=== PATIENT | female | born 1985 | race African-American/Black ===

== ENCOUNTER 2025-01-15 10:04 | Outpatient (AMB) | payer OTHER, SELFPAY ==
--- NOTE | 2025-01-15 10:06 | A.OFFPC_ITS ---
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 Vulvar pruritus: - Persistent vulvar itching for several months, exacerbated by heat, unresponsive to clotrimazole and Augmentin. - No discharge or odor noted, with a his tory of multiple consultations in [facility] and the [place] Increased urinary frequency: - Reports frequent urination without jing n or discharge, with no recent [place] gynecological evaluations. Gastrointestinal discomfort: - Experiences gas, stomach noises, nause a, loss of appetite, and stomach heaviness. Review of Systems - Genitourinary: Reports vulvar itching, increased urinary frequency. Denies discharge or foul odor. - Gastrointestinal: Reports frequent gas , stomach noises, occasional nausea, loss of appetite, and stomach heaviness. 10-point ROS reviewed and negative excep t as noted in HPI Past Medical History - History of vulvar pruritus treated wit h clotrimazole and Augmentin without relief. Health Maintenance Physical Exam General: Well-appearing, in no acute distress. Vital signs: Within normal limits. HEENT: Normocephalic, atraumatic. PERRLA, EOMI. Conjunctiva clear, sclera anicteric. Oropharynx clear, mucous membranes moist. TMs intact bilaterally. Neck: Supple, no lymphadenopathy, no thyromegaly, no JVD or carotid bruits. Cardiovascular: RRR, normal S1/S2, no murmurs, rubs, or gallops. Peripheral pulses 2+ and symmetric. No edema. Respiratory: Lungs clear to auscultation bilaterally, no wheezes, rales, or rhonchi. Normal effort. Abdomen: Soft, non-tender, non-distended. Normoactive bowel sounds. No hepatosplenomegaly, no masses. MSK: Full range of motion, no joint swelling or deformity. Normal gait. Skin: Warm, dry, intact. No rashes, lesions, or pallor. Neuro: Alert and oriented x3. Cranial nerves II-XII intact. Strength 5/5 throughout. Sensation intact. Reflexes 2+ symmetric. Normal coordination and gait. Psych: Appropriate mood and affect. Normal judgment and insight. 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 Vulvar Pruritus - Conduct comprehensive lab tests includ ing metabolic panel and CBC. Treat with nitrofurantoin for dermatitis and UTI. 2. Increased Urinary Frequency - Perform urinalysis and urine culture t o assess urinary symptoms. 3. Gastrointestinal Discomfort - Monitor symptoms and consider further evaluation if they persist. Discussion Notes I discussed with the patient the plan to conduct a series of tests including a complete metabolic panel, CBC, and a vaginal infection panel to better understand her symptoms. We also talked about starting treatment with nitrofurantoin for her urinary tract infection and triamcinolone for herdermatitis. I explained the importance of follow-up in one week to assess her response to treatment and adjust if necessary. Patient was informed and verbally consented to the use of an ambient scribe for clinic note documentation during this visit. Patient Instructions - Take nitrofurantoin as prescribed for urinary tract infection and triamcinolone for her dermatitis. - Return for follow-up in one week to ev aluate treatment response. - Monitor symptoms and report any worsen ing or new symptoms immediately. Total time spent caring for the patient today was 30 minutes. This includes time spent before the visit reviewing the chart, time spent documenting, and time spent reviewing laboratory results, diagnostic imaging, medications, performing a medically necessary evaluation, counseling on diagnoses, care coordination, ordering appropriate tests, ordering appropriate medications, review of tests performed by other providers, reporting test results with the patient, communication with other healthcare providers. [facility] Family History (Updated 01/15/25 @ 10:07 by Luzma Tom [facility]) Mother No problems noted. Father No problems noted. Social History Housing: House Patient Tobacco Use Status: Never used Tobacco service: No Current occupational status: unemployed Cognitive needs: No Hearing needs: No Vision needs: No Questionnaire PHQ-9 Over the last 2 weeks, how often have you been bothered by any of the following problems? 1. Little interest or pleasure in doing things: not at all 2. Feeling down, depressed, or hopeless: not at all 3. Trouble falling or staying asleep, or sleeping too much: more than half the days 4. Feeling tired or having little energy: not at all 5. Poor appetite or overeating: not at all 6. Feeling bad about yourself - or that you are a failure or have let yourself or your family down: not at all 7. Trouble concentrating on things, such as reading the newspaper or watching television: not at all 8. Moving or speaking so slowly that other people could have noticed. Or the opposite - being so fidgety or restless that you have been moving around a lot more than usual: not at all 9. Thoughts that you would be better off or of hurting yourself in some way: not at all Total score: 2 Source: Developed by Drs. Dennis Purcell, Iqra Mathews, Jossue Rao and colleagues, with an educational laith from [employer]. Thrive Questionnaire Date Thrive assessed: 01/12/25 I am a: Patient What is your living situation today?: I have a steady place to live Within the past 12 months, did the food you bought not last and you didn't have the money to get more?: Never true Within the past 12 months, did you worry whether your food would run out before you got money to buy more?: Never true Do you have trouble paying for medicines?: No Do you have trouble getting transportation to medical appointments?: No Do you have trouble paying your heating and electricity bill?: No Do you have trouble taking care of your child, family member or friend?: No Do you have trouble with day-to-day activities such as bathing, preparing meals, shopping, managing finances, etc.?: No Are you currently unemployed and looking for a job?: Yes Are you interested in more education?: Yes Please select the resources that you would like help with: Education Currently or been in a relationship where the following occur: No concerns reported THRIVE Score: 0 AUDIT C Alcohol Use Questionnaire (AUDIT-C) 1. How often do you have a drink containing alcohol?: Never Total Score: 0 CAYETANO-7 AMB Questionnaire CAYETANO-7 Date CAYETANO - 7 assessed: 01/15/25 Feeling nervous, anxious, or on edge: 0 = Not at all Not being able to stop or control worryin = Not at all Worrying too much about different things: 0 = Not at all Trouble relaxin = Not at all Being so restless that it is hard to sit still: 0 = Not at all Becoming easily annoyed or irritable: 0 = Not at all Feeling afraid as if something awful might happen: 0 = Not at all Total CAYETANO-7 score (0-4 normal; 5-9 mild; 10-14 moderate; 15-21 severe): 0 Source: Developed by Drs. Dennis Purcell, Iqra Mathews, Jossue Rao and colleagues, with an educational laith from [employer]. Physical exam (Primary Care) Vital Signs: Last Vital Signs Temp 98.5 F 01/15/25 10:12 Pulse 95 01/15/25 10:12 BP 108/67 01/15/25 10:12 Pulse Ox 99 01/15/25 10:12 Oxygen Delivery Method Room Air 01/15/25 10:12 BMI result Body Mass Index 23.6 Tobacco/Smoking Status: Tobacco use Status Tobacco use date assessed 01/15/25 01/15/25 10:08 Patient Tobacco Use Status Never used Tobacco 01/15/25 10:08 PHQ-9: PHQ-9 Score PHQ-9: Total score 2 01/15/25 10:15 Thrive Assessment: Date of Thrive Assessment Date Thrive assessed 01/12/25 01/15/25 10:08 Currently or been in a relationship where the following occur: No concerns reported Coding Level of Care Code New Pt Level 4 (48291) Diagnoses Vulvar pruritus L29.2 Urinary frequency R35.0 Gastrointestinal discomfort K30 Assessment & Plan Assessment & Plan (1) Vulvar pruritus: Code(s): L29.2 - Pruritus vulvae (2) Urinary frequency: Code(s): R35.0 - Frequency of micturition (3) Gastrointestinal discomfort: Code(s): K30 - Functional dyspepsia Plan Orders: Orders Chlamydia Species Ab Panel Today Z13.9 - Encounter for screening, unspecified Complete Blood Count Auto Diff Today Z13.9 - Encounter for screening, unspecified Comprehensive Met. Panel Today Z13.9 - Encounter for screening, unspecified Hepatitis B Surface Antigen Today Z13.9 - Encounter for screening, unspecified Lipid Panel Today Z13.9 - Encounter for screening, unspecified Syphilis Screen Today Z13.9 - Encounter for screening, unspecified UA CC w/rflx Micro + Cult Today Z13.9 - Encounter for screening, unspecified Vitamin B12 and Folate Today Z13.9 - Encounter for screening, unspecified Vitamin D 1,25 dihydroxy Today Z13.9 - Encounter for screening, unspecified Hemoglobin A1c Today Z13.9 - Encounter for screening, unspecified Hepatitis B Surface Antibody Today Z13.9 - Encounter for screening, unspecified Hepatitis C Antibody Today Z13.9 - Encounter for screening, unspecified TSH reflex Free T4 Today Z13.9 - Encounter for screening, unspecified CT NG by PCR Urine Today Z13.9 - Encounter for screening, unspecified Medications: New 2 nitrofurantoin macrocrystal must administer with a meal/food 100 mg PO Q12H 14 caps 0RF triamcinolone acetonide 0.1% 1 appl topical DAILY 80 grams 0RF
[2025-01-15 10:12] VITALS: BP 108/67; PULSE 95; TEMP 36.9; O2SAT 99; BMI 23.6
== END 2025-01-15 11:18 | disposition home or self-care (01) ==
LOC: HO.HMCFMS 10:04
PROVIDERS: Visit Provider Student in an Organized Health Care Education/Training Program
DX: L29.2 Pruritus vulvae (principal); R35.0 Frequency of micturition; K30 Functional dyspepsia

== ENCOUNTER 2025-01-15 10:04 | Outpatient (REF) | payer OTHER, SELFPAY ==
[2025-01-15 17:29] LABS: MANUAL DIFF FLAG NO
[2025-01-15 17:35] LABS: Hematocrit 42.3 % (37.0-47.0); Hemoglobin 13.3 g/dl (12.0-16.0); Imm Gran Abs Auto 0.01 X10*3/uL (0.00-0.03); Imm Gran Pct Auto 0.2 % (0.0-0.4); Lymphocytes Absolute Auto 2.0 X10*3/uL (1.2-4.9); Mean Corpuscular HGB Conc 31.4 g/dl (31.0-35.0); Mean Corpuscular Hemoglobin 28.5 pg (27.0-33.0); Mean Corpuscular Volume 90.8 fL (80.0-98.0); NRBC Abs Auto 0.000 X10*3/uL (0.0-0.012); NRBC Pct Auto 0.0 /100WBC (0.0-0.2); Platelet Count 296 X10*3/uL (160-400); Red Blood Count 4.66 X10*6/uL (4.20-5.50); White Blood Count 6.2 X10*3/uL (4.8-10.8)
[2025-01-15 17:48] LABS: Appearance Urine Clear; Glucose Urine UA Negative (Negative); PH 8.5 (5.0-9.0); Specific Gravity - Urine 1.010 (1.005-1.025)
[2025-01-15 18:00] LABS: Alanine Aminotransferase 15 U/L (0-31); Albumin Level 5.1 g/dL (3.5-5.0); Alkaline Phosphatase 74 U/L (39-117); Anion Gap 14 (12-20); Aspartate Amino Transferase 29 U/L (5-31); Blood Urea Nitrogen 7 mg/dL (9-16); Calcium 9.5 mg/dL (8.4-10.2); Carbon Dioxide 24 mmol/L (22-29); Chloride 105 mmol/L (96-108); Cholesterol 181 mg/dL (<200); Estimated Glomerular Filt Rate > 60; HDL Cholesterol 58 mg/dL (>40); Potassium 3.8 mmol/L (3.3-5.1); Sodium 139 mmol/L (135-145); Total Protein 8.5 g/dL (6.5-8.0); Triglycerides 59 mg/dL (<150)
[2025-01-15 18:21] LABS: Folate 12.9 ng/mL (> or = 4.0); Vitamin B12 642 pg/mL (200-900)
[2025-01-16 04:19] LABS: Syphilis Screen Nonreactive (Nonreactive)
[2025-01-16 04:43] LABS: HBS Num1 104.60 mIU/mL (0-7.99); HBsAGNum1 0.57 S/CO (0.00-0.99); Hepatitis B Surface Antigen Negative (Negative); ~HepC Num1 0.10 S/CO (0.00-0.79); ~Hepatitis B Surface Antibody REACTIVE (Nonreactive); ~Hepatitis C Antibody Nonreactive (Nonreactive)
[2025-01-16 06:06] LABS: CT PCR Urine NOT DETECTED (Not Detect.); NG PCR Urine NOT DETECTED (Not Detect.)
[2025-01-19 16:23] LABS: VITAMIN D (1,25 OH) D3 80 pg/mL; Vit D (1,25-Dihydroxy) Total 80 pg/mL (18-72); Vitamin D (1,25 OH) D2 <8 pg/mL
[2025-01-20 23:13] LABS: Chlamydia Trachomatis IgA <1:16 titer (<1:16)
== END 2025-01-15 10:05 | disposition home or self-care (01) ==
LOC: HO.HKASLDS 10:04
PROVIDERS: PCP Student in an Organized Health Care Education/Training Program; Visit Provider Student in an Organized Health Care Education/Training Program
DX: L29.2 Pruritus vulvae (principal); R35.0 Frequency of micturition; R14.0 Abdominal distension (gaseous); K30 Functional dyspepsia; Z11.3 Encounter for screening for infections with a predominantly sexual mode of transmission
CPT/HCPCS: 80053; 80061; 81003; 82607; 82652; 82746; 83036; 84443; 85025; 86631; 86632; 86706; 86780; 86803; 87340; 87491; 87591; 99202

== ENCOUNTER 2025-01-22 11:15 | Outpatient (AMB) | payer OTHER, SELFPAY ==
--- NOTE | 2025-01-22 11:18 | MHC.PC.OV ---
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 History of Present Illness The patient is a 39-year-old female presenting for follow-up From last visit which was her initial encounter she came in complaining of vulvar itching and urinary frequency where she was prescribed steroid cream alone for the vulvar pruritus and antibiotics empirically for suspect UTI Skin irritation due to topical cream: The patient experienced skin irritation characterized by itching and a slight burning sensation after applying a topical cream, which was initially intended to reduce irritation. The symptoms resolved after discontinuing the use of the cream, and she currently reports no itching, especially since the weather is cold. She reports that the itching occurs in hot weather a detail she did not mention on the initial encounter Fatigue associated with medication: The patient reports feeling quite tired as a side effect of her current medication. This fatigue has been persistent since starting the medication, but she has been advised that it is a known side effect. she denies any urinary symptoms and has finished a course of antibiotics Hyperlipidemia: Elevated LDL cholesterol: The patient's LDL cholesterol level is elevated at 112 mg/dL, which is above the recommended level of below 100 mg/dL. She has been advised to reduce dietary intake of cheese and eggs to manage her cholesterol levels. Diagnostic Results: - Labs: Complete blood count normal, liver and renal function tests normal, triglycerides normal, total cholesterol normal, LDL cholesterol elevated at 112 mg/dL, vitamin B12 normal, vitamin D slightly elevated at 80 ng/mL, thyroid function normal, urine analysis normal, hepatitis B and C negative, HIV negative. Review of Systems - Dermatological: Reports initial itching and burning sensation with cream application, currently denies any itching. - General: Reports fatigue associated with medication use. - Genitourinary: Denies discomfort on urination. 10-point ROS reviewed and negative except as noted in HPI Past Medical History Health Maintenance - Dietary modification recommended to manage elevated LDL cholesterol, including reducing intake of cheese and eggs. Physical Exam General: Well-appearing, in no acute distress. Vital signs: Within normal limits. HEENT: Normocephalic, atraumatic. PERRLA, EOMI. Conjunctiva clear, sclera anicteric. Oropharynx clear, mucous membranes moist. TMs intact bilaterally. Neck: Supple, no lymphadenopathy, no thyromegaly, no JVD or carotid bruits. Cardiovascular: RRR, normal S1/S2, no murmurs, rubs, or gallops. Peripheral pulses 2+ and symmetric. No edema. Respiratory: Lungs clear to auscultation bilaterally, no wheezes, rales, or rhonchi. Normal effort. Abdomen: Soft, non-tender, non-distended. Normoactive bowel sounds. No hepatosplenomegaly, no masses. MSK: Full range of motion, no joint swelling or deformity. Normal gait. Skin: Warm, dry, intact. No rashes, lesions, or pallor. Patient reports that the cream caused initial itching and a slight burning sensation, but no current itching is noted. Neuro: Alert and oriented x3. Cranial nerves II-XII intact. Strength 5/5 throughout. Sensation intact. Reflexes 2+ symmetric. Normal coordination and gait. Psych: Appropriate mood and affect. Normal judgment and insight. Patient reports feeling quite tired, which is a known side effect of the medication. Plan 1. Pruritus vulvae L29.2 - Advised to discontinue use of the cream if irritation persists and to return for further evaluation if needed. 2. medication side effect - Informed that fatigue is a known side effect of the medication and to monitor symptoms. 3. Hyperlipidemia: Elevated Ldl Cholesterol - Recommended dietary changes to reduce cholesterol intake, including reducing cheese and egg consumption. - Offered referral to a triage registered nurse for nutritional counseling. Discussion Notes I discussed with the patient the side effects of her current medication, including fatigue, and advised her to monitor these symptoms. We reviewed her lab results, noting an elevated LDL cholesterol level, and discussed dietary modifications to help manage this. I offered a referral to a triage registered nurse for further nutritional guidance. Patient Instructions - Monitor for any persistent skin irritation and discontinue cream use if necessary. - Be aware of fatigue as a medication side effect and report any significant changes. - Follow dietary recommendations to lower cholesterol, including reducing cheese and egg intake. - Consider seeing a triage registered nurse for personalized nutritional advice. Medical Decision Making The patient's elevated LDL cholesterol requires dietary intervention to prevent cardiovascular risks. I recommended reducing intake of high-cholesterol foods and offered a bobbin painter referral for comprehensive management. The fatigue is likely a side effect of her medication, and I advised monitoring. Skin irritation from the cream resolved after discontinuation, so no further action is needed unless symptoms recur. Total time spent caring for the patient today was 30 minutes. This includes time spent before the visit reviewing the chart, time spent documenting, and time spent reviewing laboratory results, diagnostic imaging, medications, performing a medically necessary evaluation, counseling on diagnoses, care coordination, ordering appropriate tests, ordering appropriate medications. [facility] Medical History (Updated 01/22/25 @ 11:53 by Rishabh Murray MD) Hyperlipidemia Family History Mother No problems noted. Father No problems noted. Social History Housing: House Patient Tobacco Use Status: Never used Tobacco service: No Current occupational status: unemployed Cognitive needs: No Hearing needs: No Vision needs: No Questionnaire PHQ-9 Over the last 2 weeks, how often have you been bothered by any of the following problems? 1. Little interest or pleasure in doing things: not at all 2. Feeling down, depressed, or hopeless: not at all 3. Trouble falling or staying asleep, or sleeping too much: more than half the days 4. Feeling tired or having little energy: not at all 5. Poor appetite or overeating: not at all 6. Feeling bad about yourself - or that you are a failure or have let yourself or your family down: not at all 7. Trouble concentrating on things, such as reading the newspaper or watching television: not at all 8. Moving or speaking so slowly that other people could have noticed. Or the opposite - being so fidgety or restless that you have been moving around a lot more than usual: not at all 9. Thoughts that you would be better off or of hurting yourself in some way: not at all Total score: 2 Source: Developed by Drs. Dennis Purcell, Iqra Mathews, Jossue Rao and colleagues, with an educational laith from [employer]. Thrive Questionnaire Date Thrive assessed: 01/22/25 I am a: Patient What is your living situation today?: I have a steady place to live Within the past 12 months, did the food you bought not last and you didn't have the money to get more?: Never true Within the past 12 months, did you worry whether your food would run out before you got money to buy more?: Never true Do you have trouble paying for medicines?: No Do you have trouble getting transportation to medical appointments?: No Do you have trouble paying your heating and electricity bill?: No Do you have trouble taking care of your child, family member or friend?: No Do you have trouble with day-to-day activities such as bathing, preparing meals, shopping, managing finances, etc.?: No Are you currently unemployed and looking for a job?: Yes Are you interested in more education?: Yes Please select the resources that you would like help with: Education Currently or been in a relationship where the following occur: No concerns reported THRIVE Score: 0 AUDIT C Alcohol Use Questionnaire (AUDIT-C) 1. How often do you have a drink containing alcohol?: Never Total Score: 0 CAYETANO-7 AMB Questionnaire CAYETANO-7 Date CAYETANO - 7 assessed: 01/22/25 Feeling nervous, anxious, or on edge: 0 = Not at all Not being able to stop or control worryin = Not at all Worrying too much about different things: 0 = Not at all Trouble relaxin = Not at all Being so restless that it is hard to sit still: 0 = Not at all Becoming easily annoyed or irritable: 0 = Not at all Feeling afraid as if something awful might happen: 0 = Not at all Total CAYETANO-7 score (0-4 normal; 5-9 mild; 10-14 moderate; 15-21 severe): 0 Source: Developed by Drs. Dennis LIqra Whitney Kurt Kroenke and colleagues, with an educational laith from [employer]. Physical exam (Primary Care) Vital Signs: Last Vital Signs Temp 98.1 F 01/22/25 11:19 Pulse 82 01/22/25 11:19 Resp 16 01/22/25 11:19 BP 108/74 01/22/25 11:19 Pulse Ox 99 01/22/25 11:19 Oxygen Delivery Method Room Air 01/22/25 11:19 BMI result Body Mass Index 23.9 Tobacco/Smoking Status: Tobacco use Status Tobacco use date assessed 01/22/25 01/22/25 11:20 Patient Tobacco Use Status Never used Tobacco 01/22/25 11:20 PHQ-9: PHQ-9 Score PHQ-9: Total score 2 01/22/25 11:20 Thrive Assessment: Date of Thrive Assessment Date Thrive assessed 01/22/25 01/22/25 11:20 Currently or been in a relationship where the following occur: No concerns reported Coding Level of Care Code Est Pt Level 4 (38234) Diagnoses Hyperlipidemia E78.5 Pruritus of vulva L29.2 Increased frequency of urination R35.0 Assessment & Plan Assessment & Plan (1) Hyperlipidemia: Code(s): E78.5 - Hyperlipidemia, unspecified Category: Medical (2) Pruritus of vulva: Code(s): L29.2 - Pruritus vulvae (3) Increased frequency of urination: Code(s): R35.0 - Frequency of micturition Plan Orders: Referrals Nurse Navigator Referral E78.5 - Hyperlipidemia, unspecified
[2025-01-22 11:19] VITALS: BP 108/74; PULSE 82; RESP 16; TEMP 36.7; O2SAT 99; BMI 23.9
== END 2025-01-22 11:53 | disposition home or self-care (01) ==
LOC: HO.HMCFMS 11:16
PROVIDERS: Visit Provider Student in an Organized Health Care Education/Training Program
DX: E78.5 Hyperlipidemia, unspecified (principal); L29.2 Pruritus vulvae; R35.0 Frequency of micturition

== ENCOUNTER → 2025-01-22 11:15 | Outpatient (BNVA) | payer OTHER, SELFPAY | PROVIDERS: Visit Provider Student in an Organized Health Care Education/Training Program | DX: L29.2 Pruritus vulvae (principal); E78.5 Hyperlipidemia, unspecified; R35.0 Frequency of micturition | CPT/HCPCS: 99212 ==

== ENCOUNTER → 2025-02-22 15:21 | Outpatient (BNVA) | payer OTHER, SELFPAY | DX: Z71.3 Dietary counseling and surveillance (principal) | CPT/HCPCS: 99211 ==